=== PATIENT | male | born 1970 | race Caucasian/White ===

== ENCOUNTER 2016-11-16 14:34 | Inpatient (IN) | payer OTHER ==
--- NOTE | ~2016-11-16 | HP ---
History And Physical [id number] [place]. [address] NAME: EMEKA SANDERSON : 72 STATUS : ADM IN [facility]#: [id number] AGE: 46 ADM/REG DATE : 11/16/16 MR#: [id number] REPORT SERV DATE: 11/16/16 DICTATED BY: ANSON HAMILTON JR. DATE: 11/16/16 REPORT STATUS : Draft TRANSCRIBED BY: MODEvgeny DATE: 11/16/16 DATE OF ADMISSION: 11/16/2016 CHIEF COMPLAINT: Chest pain. HISTORY OF PRESENT ILLNESS: Emeka Sanderson is a 46-year-old, white male, smoker, who works as a truck loader and has sedentary lifestyle. He has been having low-level chest pain off and on for several months that he ignored as he does not go to doctors. The patient developed more severe chest pain after 1 o'clock today prompting ER presentation. His EKG revealed atrial fibrillation that was new with the development of recurrent chest pain while in the ER with a repeat EKG consistent with STEMI. On arrival, the patient is having 8/10 chest pain with nausea and some shortness of breath with diffuse wheezing. PAST MEDICAL HISTORY: The patient denies known prior vascular disease, hypertension, hyperlipidemia, diabetes or renal insufficiency. He denies prior TIA or stroke. He states he has not seen a doctor in years. ALLERGIES: DENIED. CURRENT MEDICATIONS: None. SOCIAL HISTORY: The patient is a pack and half a day smoker. He denies alcohol or recreational drug abuse. FAMILY HISTORY: Father had an GA at age 43 and his sister had an GA last month. REVIEW OF SYSTEMS: He denies sudden weight gain or weight loss, bleeding diathesis, fever, or chills. Remainder as HPI or negative. PHYSICAL EXAMINATION: VITAL SIGNS: Blood pressure 168/80, heart rate 85, respirations 20. GENERAL: An obese male, who is uncomfortable and in mild distress. HEENT: Anicteric, no scleral injection, no oral lesions. NECK: No JVD. Supple. No bruits. LUNGS: Diffuse wheezing. CARDIOVASCULAR: Irregularly irregular rhythm with distant heart sounds. ABDOMEN: Soft, nontender. Normoactive bowel sounds. No hepatosplenomegaly. EXTREMITIES: No clubbing, cyanosis or edema. SKIN: No visible rashes. NEURO/PSY: Normal affect, alert and oriented x3. EKG: EKG reveals atrial fibrillation with ST and T-wave abnormality consistent with acute inferoposterior STEMI. MEDICAL DECISION MAKING: History And Physical [address] [address] NAME: EMEKA SANDERSON : 72 STATUS : ADM IN PAT#: [id number] AGE: 46 ADM/REG DATE : 11/16/16 MR#: [id number] REPORT SERV DATE: 11/16/16 DICTATED BY: ANSON HAMILTON JR. DATE: 11/16/16 REPORT STATUS : Draft TRANSCRIBED BY: WENDY DATE: 11/16/[address]-elevation myocardial infarction. The patient will be taken emergently to the catheterization laboratory for coronary angiography and percutaneous intervention. This is an emergency procedure. The risks were verbally explained and verbally accepted. 2. Nicotine dependence due to cigarettes. The patient was initiated with smoking cessation counseling. 3. Mixed hyperlipidemia. He will be placed on intensive statin therapy. 4. Diffuse wheezing, concerning for chronic obstructive pulmonary disease. Smoking cessation counseling was initiated. We may consider Pulmonary consultation pending clinical course. YAYO/WENDY Anson Hamilton Jr., M.D. / [id number] CC: Oswaldo Connolly MD
[2016-11-16] MEDS ORDERED: ADVIL PO (14:36)
[2016-11-16 20:43] LABS: CK-MB 13.2 NG/ML
[2016-11-16 20:44] LABS: CKMB INDEX (NOT ORD) 5.7
[2016-11-16 22:59] LABS: CK-MB 15.4 NG/ML; CKMB INDEX (NOT ORD) 5.8
[2016-11-17 04:24] LABS: BASOPHILS 0.2 %; BASOPHILS ABSOLUTE 0.03 10/3/uL (0.0-0.16); EOSINOPHILS 1.6 %; EOSINOPHILS ABSOLUTE 0.22 10/3/uL (0.0-0.53); HEMOGLOBIN 14.9 g/dL (13.6-17.8); IMMATURE GRANULOCYTES 0.4 %; IMMATURE GRANULOCYTES ABSOLUTE 0.05 10/3/uL (0.0-0.11); LYMPHOCYTES 21.9 %; LYMPHOCYTES ABSOLUTE 3.01 10/3/uL (0.67-4.30); MEAN CORPUS HGB CONC 34.2 g/dL (32.0-36.0); MEAN CORPUSCULAR HEMOGLOB 30.4 pg (26.0-34.0); MEAN PLATELET VOLUME 9.4 fL (9.2-13.0); MONOCYTES 7.8 %; MONOCYTES ABSOLUTE 1.07 10/3/uL (0.21-1.20); NEUTROPHILS 68.1 %; NEUTROPHILS ABSOLUTE 9.39 10/3/uL (2.02-8.40); RBC DISTRIBUTION WIDTH 12.9 % (12.0-16.0); WHITE BLOOD CELLS 13.8 10/3/uL (4.5-10.5)
[2016-11-17 04:26] LABS: HEMATOCRIT 43.6 % (40.0-51.0); MANUAL DIFF NO %; PLATELET COUNT 307 10/3/uL (150-400)
[2016-11-17 04:45] LABS: BUN (BLOOD UREA NITROGEN) 12 MG/DL (6-23); CALCIUM, SERUM 8.6 MG/DL (8.5-10.4); CHLORIDE, SERUM 106 MMOL/L (96-112); CHOL/HDL RATIO(NOT ORDER) 5.8 (0-5); CHOLESTEROL 181 MG/DL (< 200); CK-MB 16.5 NG/ML; CO2 (CARBON DIOXIDE) 27 MMOL/L (24-34); CPK 292 U/L (0-200); CREATININE 0.74 MG/DL (0.70-1.30); GFR AFRICAN AMERICAN 129 ML/MIN (>=60); GFR NON AFRICAN AMERICAN 111 ML/MIN (>=60); GLUCOSE, SERUM 133 MG/DL (60-99); HDL CHOLESTEROL 31 MG/DL (> 39); LDL CHOLESTEROL 123 MG/DL (< 130); NON-HDL CHOLESTEROL 150 MG/DL (< 160); POTASSIUM, SERUM 3.7 MMOL/L (3.5-5.3); SODIUM, SERUM 143 MMOL/L (135-148); TRIGLYCERIDE 137 MG/DL (< 150)
[2016-11-17 04:50] LABS: CKMB INDEX (NOT ORD) 5.7
[2016-11-17 13:52] LABS: CK-MB 10.8 NG/ML
[2016-11-17 13:54] LABS: CKMB INDEX (NOT ORD) 4.6
[2016-11-18 06:22] LABS: BASOPHILS 0.4 %; BASOPHILS ABSOLUTE 0.04 10/3/uL (0.0-0.16); EOSINOPHILS 3.4 %; EOSINOPHILS ABSOLUTE 0.37 10/3/uL (0.0-0.53); HEMATOCRIT 46.9 % (40.0-51.0); IMMATURE GRANULOCYTES 0.4 %; IMMATURE GRANULOCYTES ABSOLUTE 0.04 10/3/uL (0.0-0.11); LYMPHOCYTES 21.7 %; LYMPHOCYTES ABSOLUTE 2.36 10/3/uL (0.67-4.30); MANUAL DIFF NO %; MEAN CORPUS HGB CONC 34.1 g/dL (32.0-36.0); MEAN PLATELET VOLUME 9.5 fL (9.2-13.0); MONOCYTES 7.7 %; MONOCYTES ABSOLUTE 0.84 10/3/uL (0.21-1.20); NEUTROPHILS 66.4 %; NEUTROPHILS ABSOLUTE 7.22 10/3/uL (2.02-8.40); PLATELET COUNT 273 10/3/uL (150-400); RED CELL COUNT 5.33 10/6/uL (4.7-6.1); WHITE BLOOD CELLS 10.9 10/3/uL (4.5-10.5)
[2016-11-18 06:46] LABS: BUN (BLOOD UREA NITROGEN) 13 MG/DL (6-23); CALCIUM, SERUM 8.7 MG/DL (8.5-10.4); CHLORIDE, SERUM 108 MMOL/L (96-112); CO2 (CARBON DIOXIDE) 25 MMOL/L (24-34); CREATININE 0.77 MG/DL (0.70-1.30); GFR AFRICAN AMERICAN 127 ML/MIN (>=60); GFR NON AFRICAN AMERICAN 110 ML/MIN (>=60); POTASSIUM, SERUM 4.3 MMOL/L (3.5-5.3); SODIUM, SERUM 142 MMOL/L (135-148)
[2016-11-18 06:52] LABS: GLUCOSE, SERUM 96 MG/DL (60-99)
[2016-11-18] MEDS ORDERED: ASAB PO (11:22)
[2016-11-18] MEDS ORDERED: LIPITOR40 PO (11:23)
[2016-11-18] MEDS ORDERED: LOP25 PO (11:24)
[2016-11-18] MEDS ORDERED: EFFIENT10 PO (11:24)
[2016-11-18] MEDS ORDERED: CHANTIX STARTER PACK (11:25)
[2017-01-03] MEDS ORDERED: ISORDIL20 PO (13:12)
[2017-01-04] MEDS ORDERED: HABITROL TD (11:15)
== END 2016-11-18 12:38 | disposition home or self-care (01) | DRG 247 ==
LOC: SSU2 14:34 → CCU 16:49 → 6NO 11-17 21:59
PROVIDERS: Internal Medicine Cardiovascular Disease
PROC: 027034Z Dilation of Coronary Artery, One Artery with Drug-eluting Intraluminal Device, Percutaneous Approach (ICD-10-PCS; principal; 2016-11-16)
PROC: 4A023N7 Measurement of Cardiac Sampling and Pressure, Left Heart, Percutaneous Approach (ICD-10-PCS; 2016-11-16)
PROC: B2111ZZ Fluoroscopy of Multiple Coronary Arteries using Low Osmolar Contrast (ICD-10-PCS; 2016-11-16)
PROC: B2151ZZ Fluoroscopy of Left Heart using Low Osmolar Contrast (ICD-10-PCS; 2016-11-16)
DX: I21.11 ST elevation (STEMI) myocardial infarction involving right coronary artery (principal); Z68.41 Body mass index [BMI] 40.0-44.9, adult; I25.10 Atherosclerotic heart disease of native coronary artery without angina pectoris; F17.210 Nicotine dependence, cigarettes, uncomplicated; I48.91 Unspecified atrial fibrillation; I73.9 Peripheral vascular disease, unspecified; Z82.49 Family history of ischemic heart disease and other diseases of the circulatory system; E78.2 Mixed hyperlipidemia; E66.9 Obesity, unspecified; Z79.899 Other long term (current) drug therapy
CPT/HCPCS: 71010; 80048; 80061; 82550; 82553; 82565; 83735; 84484; 85025; 85610; 85730; 87641; 93005; 93458; 99152; 99153; 99285; A9270-GY; C1713; C1725; C1769; C1874; C1887; C1894; C8929; C9606; J0583; J2250; J2405; J3010; Q9957; Q9967